=== PATIENT | female | born 1980 | race Caucasian/White ===

== ENCOUNTER 2016-12-27 15:37 | Inpatient (IN) | payer OTHER ==
[2016-12-27] MEDS ORDERED: OBEPIDURAL* 250 ML ONE (16:41)
[2016-12-27 17:22] LABS: Hematocrit 39 % (35-47); Hemoglobin 12.6 g/dl (12.0-16.0); Mean Corpuscular HGB Conc 33 g/dl (31-36); Mean Corpuscular Hemoglobin 29 pg (27-31); Mean Corpuscular Volume 88 fL (80-97); Mean Platelet Volume 11 um3 (7.4-10.4); Red Blood Count 4.43 10^6/ul (4.0-5.4); Red Cell Distribution Width 14 % (10.5-15); White Blood Count 12.7 10^3/ul (3.5-10.8)
[2016-12-27 17:24] LABS: Add Diff/Slide Review? Slide Review Added; Comments Flag Yes
[2016-12-27] MEDS ORDERED: EPHEDrine (Pressors)* 50 MG/ML VIAL IV PUSH PRN (17:58)
[2016-12-27] MEDS ORDERED: Sodium Citrate/Citric Acid* 15 ML UDC PO PRN (17:58)
[2016-12-27] MEDS ORDERED: Famotidine TAB* 20 MG PO PRN (17:58)
[2016-12-27] MEDS ORDERED: OBEPIDURAL* 250 ML EPIDURAL SCH (18:00)
[2016-12-27] MEDS: Phenylephrine IV* 40 MCG/ML 10 ML SYRINGE IV PUSH PRN ×2 (18:05→18:11)
[2016-12-27] MEDS ORDERED: Oxytocin in LR* 20 UNITS/1,000 ML BAG IVPB ONE (19:11)
[2016-12-27] MEDS ORDERED: Glycerin ADULT SUPP PR PRN (21:25)
[2016-12-27] MEDS ORDERED: Acetaminophen TAB* 325 MG PO PRN (21:25)
[2016-12-27] MEDS ORDERED: Witch Hazel PAD* JAR TOPICAL PRN (21:25)
[2016-12-27] MEDS ORDERED: Dibucaine 1% 28.35 GM TUBE PR PRN (21:25)
[2016-12-27] MEDS ORDERED: Oxytocin in LR* 20 UNITS/1,000 ML BAG IVPB SCH (22:00)
[2016-12-28 06:08] LABS: Hematocrit 36 % (35-47); Mean Corpuscular HGB Conc 33 g/dl (31-36); Mean Corpuscular Hemoglobin 29 pg (27-31); Mean Corpuscular Volume 88 fL (80-97); Mean Platelet Volume 11 um3 (7.4-10.4); Red Blood Count 4.09 10^6/ul (4.0-5.4); Red Cell Distribution Width 14 % (10.5-15); White Blood Count 15.3 10^3/ul (3.5-10.8)
[2016-12-28] MEDS ORDERED: Simethicone CHEW TAB* 80 MG PO SCH (08:30)
[2016-12-28] MEDS: Ibuprofen TAB* 600 MG PO PRN ×2 (08:47→14:40)
[2016-12-28] MEDS: Docusate CAP* 100 MG PO SCH ×3 (08:47→20:41)
[2016-12-28] MEDS ORDERED: Ferrous Gluconate TAB* 324 MG TAB PO SCH (09:00)
[2016-12-28 21:47] VITALS: BP 112/78
== END 2016-12-29 13:27 | disposition home or self-care (01) | DRG 775 ==
LOC: MCHOBOUT 15:37 → MCHOB 16:39
PROVIDERS: ADMIT Obstetrics & Gynecology; ATTEND Obstetrics & Gynecology
PROC: 10E0XZZ Delivery of Products of Conception, External Approach (ICD-10-PCS; principal; 2016-12-27)
PROC: 10907ZC Drainage of Amniotic Fluid, Therapeutic from Products of Conception, Via Natural or Artificial Opening (ICD-10-PCS; 2016-12-27)
DX: O32.6XX0 Maternal care for compound presentation, not applicable or unspecified (principal); Z37.0 Single live birth; Z3A.39 39 weeks gestation of pregnancy
CPT/HCPCS: 36415; 85025; 86850; 86900; 86901; A9270-GY